=== PATIENT | female | born 1965 | race Caucasian/White ===

== ENCOUNTER → 2023-11-14 10:07 | Outpatient (REF) | payer BC, SELFPAY | LOC: WDC 10:07 | PROVIDERS: ATTENDING PHYSICIAN Family Medicine | DX: Z12.31 Encounter for screening mammogram for malignant neoplasm of breast (principal); Z78.0 Asymptomatic menopausal state | CPT/HCPCS: 77063; 77067; 77080 ==

== ENCOUNTER → 2024-08-31 17:11 | Outpatient (REF) | payer BC, SELFPAY | LOC: RAD 17:11 | PROVIDERS: ATTENDING PHYSICIAN Family Medicine | DX: R05.3 Chronic cough (principal); R07.89 Other chest pain | CPT/HCPCS: 71046 ==